=== PATIENT | female | born 2000 | race Two or more races ===

== ENCOUNTER 2022-01-22 16:54 | Emergency (ER) | payer OTHER ==
[~2022-01-22] VITALS: Ht 167.6 cm; Wt 70.3 kg
[2022-01-23] MEDS ORDERED: KETO10TA2 PO (03:20)
== END 2022-01-23 03:25 ==
LOC: ER 16:54 → EMR PED 16:54 → ER 20:49 → EMR PED 20:49 → ER 01-23 03:25
DX: R10.9 Unspecified abdominal pain (principal); Z20.822 Contact with and (suspected) exposure to COVID-19